=== PATIENT | male | born 1990 | race Caucasian/White ===

== ENCOUNTER 2017-05-05 21:30 | Inpatient (IN) | payer BC, OTHER ==
[~2017-05-05] VITALS: Ht 175.3 cm; Wt 81.6 kg
[2017-05-05] MEDS ORDERED: MAG HYDROX/AL HYDROX/SIMETH 30 ML LIQUID UDC PO PRN (23:00)
[2017-05-05] MEDS ORDERED: LORAZEPAM 2 MG/1 ML VIAL IM PRN (23:00)
[2017-05-05] MEDS ORDERED: LOPERAMIDE HCL 2 MG CAPSULE PO PRN ×2 (23:00)
[2017-05-05] MEDS ORDERED: DICYCLOMINE HCL 20 MG TABLET PO PRN (23:00)
[2017-05-05] MEDS ORDERED: diphenhydrAMINE 50 MG CAPSULE PO PRN (23:00)
[2017-05-05] MEDS ORDERED: LORAZEPAM 1 MG TABLET PO PRN ×2 (23:00)
[2017-05-05] MEDS ORDERED: MIRALAX 17 GM POWD.PACK PO PRN (23:00)
[2017-05-05] MEDS ORDERED: ONDANSETRON ODT 4 MG TAB.RAPDIS SL PRN (23:00)
[2017-05-05] MEDS ORDERED: IBUPROFEN 400 MG TABLET PO PRN (23:00)
[2017-05-05] MEDS ORDERED: MAGNESIUM HYDROXIDE 30 ML LIQUID UDC PO PRN (23:00)
[2017-05-05] MEDS ORDERED: THIAMINE HCL 200 MG/2 ML VIAL IM ONE (23:00)
[2017-05-05] MEDS ORDERED: ONDANSETRON 4 MG/2 ML VIAL IM PRN (23:00)
[2017-05-05] MEDS ORDERED: ACETAMINOPHEN 325 MG TABLET PO PRN (23:00)
--- NOTE | 2017-05-05 23:20 | NUR ---
Pre- Admission Notes Px is a 27 y/o male, seen at intake, A&Ox4, no SOB with moderate anxiety noted at this time. Discussed with patient the admission policies of the unit. Patient is coherent and able to respond to questions appropriately. Px is ambulatory with steady gait. Vital signs taken and as follows: BP: 149/89, P: 121, R: 18, O2: 97%, T: 97.8, PA: 0. Px verbalized understanding of instructions and teachings regarding disposal of narcotic and other controlled home medications, unit protocols such as taking of vital signs Q4H and handling and disposal of contraband. We'll continue with admission upon px's arrival on the unit.
[2017-05-05 23:41] LABS: BASOPHILS # (AUTO) 0.1 K/uL (0.0-8.0); BASOPHILS % (AUTO) 0.6 % (0.0-2.0); EOSINOPHILS # (AUTO) 0.1 K/uL (0.0-0.7); EOSINOPHILS % (AUTO) 0.7 % (0.0-7.0); HEMATOCRIT 48.2 % (36.7-47.1); HEMOGLOBIN 17.1 g/dL (12.5-16.3); LYMPHOCYTES # (AUTO) 2.5 K/uL (20.0-40.0); LYMPHOCYTES % (AUTO) 25.2 % (20.5-51.5); MEAN CORPUSCULAR HEMOGLOBIN 30.9 uug (23.8-33.4); MEAN CORPUSCULAR HGB CONC 36 g/dL (32.5-36.3); MEAN CORPUSCULAR VOLUME 87.1 fL (73.0-96.2); MONOCYTES # (AUTO) 0.8 K/uL (2.0-10.0); MONOCYTES % (AUTO) 7.8 % (0.0-11.0); NEUTROPHILS # (AUTO) 6.4 K/uL (1.8-8.9); NEUTROPHILS % (AUTO) 65.7 % (38.5-71.5); PLATELET COUNT (AUTO) 393 K/uL (152-348); RED BLOOD CELL COUNT(AUTO) 5.53 MIL/uL (4.06-5.63); WHITE BLOOD COUNT (AUTO) 9.8 K/uL (3.6-10.2)
[2017-05-05] MEDS ORDERED: LORAZEPAM 1 MG TABLET PO SCH (23:50)
[2017-05-06] VITALS (7 sets, daily range): BP systolic 124–145; BP diastolic 70–105
--- NOTE | 2017-05-06 | NUR ---
Admission Notes Augustina is a 27 y/o male admitted on 05/05/17 for ETOH, cannabis and cocaine dependence, arrived on the unit at 2342. Px able to provide UDS during intake. Skin and body check completed. Augustina is full code, NKA, regular diet and on fall/seizure precautions. No reported seizure history. Reports PMHx of anxiety, depression, and tinnitus. Augustina refuses flu/pneumonia vaccine. Vitals upon assessment are BP: 142/85, P: 102, R: 18, O2: 97%, T: 98.1, PA: 0/10. Weight 180 lbs, height 5'9". Augustina is currently intoxicated. Px reports he quit smoking recently. Augustina is able to understand and respond to all questions pertaining to his hospitalization. Substance Abuse History is as follows: 1. Vodka/Whiskey- 750 ml daily for 3 weeks, last intake 05/05/2017 700 ml 2. Cocaine 0.5 -1 G snorted per month intermittently, last intake 4 days ago 0.5 G 3. Cannabis- 0.5 G smoked daily for 8 years, last intake 05/05/2017, 0.5 G Pxs longest sober period was 1.5 weeks, few weeks ago. Augustina reports this is his first time in treatment/detox. Reports substance use history and seizures with his father. Upon assessment, augustina is A&Ox4 and presents with anxiety, and flushed skin. Respirations even and unlabored. Denies SOB or chest pain. Bowel sounds active x 4, abdomen soft. PERRLA. Skin intact, no open wounds noted. Augustina denies SI/HI at this time. Educational information provided and left at bedside. Px oriented to room and encouraged to notify staff with any concerns. Safety measures in place. Call light within reach, side rails up x 2, bed locked and in low position. We'll continue to monitor.
[2017-05-06 00:16] LABS: *AMPHETAMINE, URINE NEGATIVE (NEGATIVE); *BARBITURATE, URINE NEGATIVE (NEGATIVE); *CANNABINOID, URINE POSITIVE (NEGATIVE); *COCCAINE, URINE NEGATIVE (NEGATIVE); *OPIATE, URINE NEGATIVE (NEGATIVE); *PHENCYCLIDINE SCREEN,URINE NEGATIVE (NEGATIVE)
--- NOTE | 2017-05-06 00:18 | NUR ---
1x dose meds Ativan 1 mg/tab, 2 tabs given PO and Thiamine 100 mg given IM as 1x dose medications. We'll continue to monitor.
[2017-05-06 00:24] LABS: BILIRUBIN,TOTAL 0.5 mg/dL (0.2-1.0); MAGNESIUM 2.2 mg/dL (1.8-2.4); POTASSIUM 3.8 mmol/L (3.5-5.1); TOTAL PROTEIN, SERUM 8.8 g/dL (6.4-8.2)
--- NOTE | 2017-05-06 07:29 | NUR ---
End of Shift Notes 27 y/o male admitted on 05/05/17 for ETOH, cannabis and cocaine dependence. Px is full code, NKA, regular diet and on fall/seizure precautions. No reported seizure history. At 0018, CIWA 10, Ativan 1 mg/tab, 2 tabs given PO and Thiamine 100 mg given IM as 1x dose medications. After giveng the ordered medications, px went to sleep. Oral intake of 1 L, voided 2 x, No BM. Slept for 5 hours. Respirations are even and unlabored. Safety measures in place. Call light within reach, side rails up x 2, bed locked and in low position. We'll continue to monitor.
--- NOTE | 2017-05-06 07:30 | NUR ---
START OF SHIFT Pt 27 y/o male admitted for etoh, cocaine, and cannibus dependence. Pt received in room on bed with eyes closed resting, but easily arousable to name. Pt alert and oriented to name, place, and time. Perrla. Skin warm and moist to touch. Respirations even and unlabored. Bilateral hand tremors noted. It was reported that pt slept for 6 hours last night. Bed on lowest position with side rails x2 up for safety. Call light within reach. No distress noted at this time.
[2017-05-06] MEDS: FOLIC ACID 1 MG TABLET PO SCH (08:33)
[2017-05-06] MEDS: THIAMINE HCL 100 MG TABLET PO SCH (08:33)
[2017-05-06] MEDS: LORAZEPAM 1 MG TABLET PO SCH ×4 (08:33→21:37)
[2017-05-06] MEDS: MULTIVITAMINS,THERAPEUTIC TABLET PO SCH (08:33)
[2017-05-06] MEDS ORDERED: TUBERCULIN,PURIF.PROT.DERIV. 5 TU/0.1 ML TEST ID ONE (09:00)
[2017-05-06] MEDS: CLONIDINE HCL 0.1 MG TABLET PO PRN ×2 (12:18→21:37)
--- NOTE | 2017-05-06 12:38 | NUR ---
PRN Pt with xj=584/92. Catapres po prn per MD order given and tolerated well.
--- NOTE | 2017-05-06 13:38 | NUR ---
PRN EVAL Pt with qo=508/68.
--- NOTE | 2017-05-06 18:31 | NUR ---
END OF SHIFT Pt 27 y/o male admitted for etoh, cocaine, and cannibus dependence. Pt alert and oriented to name, place, and time. Perrla. Respirations even and unlabored. Skin warm and moist to touch. Bilateral hand tremors noted. Pt observed mostly isolative to room , but did attned group activity. Pt was seen by MD today. Pt medication compliant and tolerated well. No ASE noted. Bed on lowest position with side rails x2 up for safety. Call light within reach. No distress noted at this time.
--- NOTE | 2017-05-06 19:15 | NUR ---
START OF SHIFT NOTE : Pt. is 27 year old male admitted for ETOH, Cocaine, and MJ dependence on 05/05/2017. Pt. is Full Code, NKA, on Regular Diet. Pt. placed on 5 day Ativan taper on 05/06/2017 , tolerating well. Pt. is on fall/seizure precautions. Pt received in room watching TV, resting . Pt alert and oriented to name, place, and time. Pt. complains of increased level of anxiety. Bed on lowest position with side rails x2 up for safety. Call light within reach. No distress noted at this time.
--- NOTE | 2017-05-06 21:00 | NUR ---
PRN CATAPRES Pt. complains of increased level of anxiety. PRN CLONIDINE given as ordered. Safety measures in place : bed on lowest position with side rails x2 up for safety, call light within reach. Will continue to monitor closely and offer help.
--- NOTE | 2017-05-06 22:00 | NUR ---
RE-ASSESSMENT CATAPRES Pt. is sleeping, RR=16 unlabored and even. Safety measures in place : bed on lowest position with side rails x2 up for safety, call light within reach. Will continue to monitor closely and offer help.
--- NOTE | 2017-05-07 06:33 | NUR ---
END OF SHIFT NOTE : Pt. is 27 year old male admitted for ETOH, Cocaine, and MJ dependence on 05/05/2017. Pt. is Full Code, NKA, on Regular Diet. Pt. placed on 5 day Ativan taper on 05/06/2017 , tolerating well. Pt. is on fall/seizure precautions. Pt remains compliant with the treatment plan. PRN Catapress given during my shift. V/S remain WNL. RR=16, even and unlabored, lungs clear upon auscultation, abdomen soft and non- distended. Pt denies nausea, vomiting and diarrhea. CIWA taken when pt. was alert during the night, LAST CIWA= 3 at 0400 , [id number]=981 ml, voided x1 , slept 9 hours. Safety measures in place : bed on lowest position with side rails x2 up for safety, call light within reach. Will continue to monitor closely and offer help.
--- NOTE | 2017-05-07 07:30 | NUR ---
START OF SHIFT Pt 27 y/o male admitted for etoh, cocaine, and cannibus dependence. Pt received in room on bed with eyes closed resting, but easily arousable to name. Pt alert and oriented to name, place, and time. Perrla. Skin warm and slightly moist to touch. Respirations even and unlabored. Bilateral hand tremors noted slighlty. It was reported that pt slept for 9 hours last night. Bed on lowest position with side rails x2 up for safety. Call light within reach. No distress noted at this time.
[2017-05-07 08:00] VITALS: BP 138/85
[2017-05-07] MEDS: FOLIC ACID 1 MG TABLET PO SCH (08:11)
[2017-05-07] MEDS: THIAMINE HCL 100 MG TABLET PO SCH (08:11)
[2017-05-07] MEDS: LORAZEPAM 1 MG TABLET PO SCH ×3 (08:11→21:11)
[2017-05-07] MEDS: MULTIVITAMINS,THERAPEUTIC TABLET PO SCH (08:11)
[2017-05-07 12:03] VITALS: BP 141/98
[2017-05-07 12:09] LABS: HEPATITIS B SURFACE AG Negative (Negative)
[2017-05-07] MEDS: CLONIDINE HCL 0.1 MG TABLET PO PRN ×3 (12:09→21:11)
--- NOTE | 2017-05-07 12:11 | NUR ---
PRN Pt with dd=853/98. Catapres po prn per MD order given and tolerated well.
--- NOTE | 2017-05-07 13:11 | NUR ---
PRN EVAL pt with qd=603/88
[2017-05-07 16:00] VITALS: BP 140/93
--- NOTE | 2017-05-07 18:23 | NUR ---
PRN Pt with pw=227/93.Catapres po prn per MD order given and tolerated well.
--- NOTE | 2017-05-07 18:40 | NUR ---
END OF SHIFT Pt 27 y/o male admitted for etoh, cocaine, and cannibus dependence. Pt alert and oriented to name, place, and time. Perrla. Respirations even and unlabored. Skin warm and moist to touch. Bilateral hand tremors noted. Pt appears suspicious/ guarded on approach. Pt observed mostly isolative to room , but did attend group activity. Pt was seen by MD today. Pt medication compliant and tolerated well. No ASE noted. Bed on lowest position with side rails x2 up for safety. Call light within reach.
--- NOTE | 2017-05-07 19:15 | NUR ---
START OF SHIFT NOTE : Pt. is 27 year old male admitted for ETOH, Cocaine, and MJ dependence on 05/05/2017. Pt. is Full Code, NKA, on Regular Diet. Pt. placed on 5 day Ativan taper on 05/06/2017 , tolerating well. Pt. is on fall/seizure precautions. Pt. is walking on the floor, communicating with other clients, he complains of increased level of anxiety , want to smoke. Safety measures in place : bed on lowest position with side rails x2 up for safety, call light within reach. Will continue to monitor closely and offer help.
[2017-05-07 20:00] VITALS: BP 154/104
[2017-05-07] MEDS: GABAPENTIN 300 MG CAPSULE PO SCH (21:12)
--- NOTE | 2017-05-08 06:49 | NUR ---
END OF SHIFT NOTE : Pt. is 27 year old male admitted for ETOH, Cocaine, and MJ dependence on 05/05/2017. Pt. is Full Code, NKA, on Regular Diet. Pt. placed on 5 day Ativan taper on 05/06/2017 , tolerating well. Pt. is on fall/seizure precautions. Pt remains compliant with the treatment plan. PRN Catapress given during my shift. V/S remain WNL. RR=16, even and unlabored, lungs clear upon auscultation, abdomen soft and non- distended. Pt denies nausea, vomiting and diarrhea. CIWA taken when pt. was alert during the night, LAST CIWA= 3 at 0400 , [id number] ml, voided x1 , slept 8 hours. Safety measures in place : bed on lowest position with side rails x2 up for safety, call light within reach. Will continue to monitor closely and offer help.
--- NOTE | 2017-05-08 07:32 | NUR ---
Start of shift- Rcvd endorsement from ongoing nurse. Pt. is 27 y/o male admitted for ETOH, Cocaine, and MJ dependence. Pt. is Full Code, NKA, on Regular Diet. Pt. placed on 5 day Ativan taper on 05/06/2017, tolerating well. Pt. is on fall/seizure precautions. Pt in bed appears to be sleeping. Respirations even and unlabored. At 0300 last CIWA 3. Pt denies c/o N/V/D. Pt had uneventful night. Safety measures in place. Bed lowest/locked position, side rails up X2/padded, call light within reach. Will continue to monitor signs and symptoms of withdrawal.
[2017-05-08 08:00] VITALS: BP 121/76
[2017-05-08] MEDS: THIAMINE HCL 100 MG TABLET PO SCH (08:55)
[2017-05-08] MEDS: MULTIVITAMINS,THERAPEUTIC TABLET PO SCH (08:55)
[2017-05-08] MEDS: FOLIC ACID 1 MG TABLET PO SCH (08:55)
[2017-05-08] MEDS: LORAZEPAM 1 MG TABLET PO SCH ×3 (08:55→16:56)
[2017-05-08] MEDS: GABAPENTIN 300 MG CAPSULE PO SCH ×2 (08:55→14:27)
--- NOTE | 2017-05-08 08:55 | NUR ---
PRN Motrin PO per MD order for headache #4/10.
[2017-05-08] MEDS ORDERED: LORAZEPAM 1 MG TABLET PO SCH ×2 (09:00→21:00)
--- NOTE | 2017-05-08 09:55 | NUR ---
Reasses ROXY Cooper, Pt states headache #04/14. Rx effective.
[2017-05-08 12:00] VITALS: BP 140/108
[2017-05-08] MEDS: CLONIDINE HCL 0.1 MG TABLET PO PRN ×2 (12:16→18:29)
--- NOTE | 2017-05-08 12:16 | NUR ---
PRN Catapress 0.1mg PO for elevated BP 140/108.
[2017-05-08 13:15] VITALS: BP 141/88
--- NOTE | 2017-05-08 13:15 | NUR ---
Reassess PRN Catapress, BP slightly improved. 141/88, HR 85. Pt states he feels well. Denies c/o headache or anxiety at this time.
[2017-05-08 16:00] VITALS: BP 145/93
--- NOTE | 2017-05-08 17:05 | NUR ---
CATAPRES Pt with dn=947/93. Last catapres 0.1mg po prn q6h bp>140/90 was given at 1216. made aware, and stated okay to hold off on catapres.
--- NOTE | 2017-05-08 18:30 | NUR ---
PRN Pt with nn=054/97. Catapres po prn per MD order given and tolerated well.
--- NOTE | 2017-05-08 18:35 | NUR ---
End of shift- Pt. is 27 y/o male admitted for ETOH, Cocaine, and MJ dependence. Pt. is Full Code, NKA, on Regular Diet. Pt presents with flat affect and depressed mood. Pt. on 5 day Ativan taper on 05/06/2017. PRN Catapres 0.1 mg PO administered for elevate BP at 1200. BP remains elevated at 1600, Dr. Owens notified, no new orders. BP recheck at 1830 was 148/97. Administered PRN Catapres 0.1mg po. Pt participated in group therapy and was visible on the unit. Pt is on fall/seizure precautions. At 1600 CIWA 10. Adequate PO fluid intake of 1322 ml, voids X 4, no BM. Safety measures in place. Safety measures in place. Bed lowest/locked position, side rails up X2/padded, call light within reach. Will endorse to oncoming nurse.
--- NOTE | 2017-05-08 19:15 | NUR ---
START OF SHIFT NOTE : Pt. is 27 year old male admitted for ETOH, Cocaine, and MJ dependence on 05/05/2017. Pt. is Full Code, NKA, on Regular Diet. Pt. placed on 5 day Ativan taper on 05/06/2017 , tolerating well. Pt. is on fall/seizure precautions. Pt. is in the activity room, communicating with other clients, watching TV, he complains of increased level of anxiety. Safety measures in place : bed on lowest position with side rails x2 up for safety, call light within reach. Will continue to monitor closely and offer help.
[2017-05-08 20:00] VITALS: BP 140/99
[2017-05-08] MEDS ORDERED: GABAPENTIN 300 MG CAPSULE PO SCH (21:00)
[2017-05-09] VITALS (7 sets, daily range): BP systolic 138–148; BP diastolic 84–100
--- NOTE | 2017-05-09 06:42 | NUR ---
END OF SHIFT NOTE : Pt. is 27 year old male admitted for ETOH, Cocaine, and MJ dependence on 05/05/2017. Pt. is Full Code, NKA, on Regular Diet. Pt. placed on 5 day Ativan taper on 05/06/2017 , tolerating well. Pt. is on fall/seizure precautions. Pt remains compliant with the treatment plan. No PRN were given during my shift. V/S remain WNL. RR=16, even and unlabored, lungs clear upon auscultation, abdomen soft and non- distended. Pt denies nausea, vomiting and diarrhea. CIWA taken when pt. was alert during the night, LAST CIWA= 2 at 0400 , [id number]=5040 ml, voided x3 , slept 6 hours. Safety measures in place : bed on lowest position with side rails x2 up for safety, call light within reach. Will continue to monitor closely and offer help.
[2017-05-09] MEDS: THIAMINE HCL 100 MG TABLET PO SCH (08:30)
[2017-05-09] MEDS: LORAZEPAM 1 MG TABLET PO SCH ×3 (08:31→20:31)
[2017-05-09] MEDS: MULTIVITAMINS,THERAPEUTIC TABLET PO SCH (08:31)
[2017-05-09] MEDS: GABAPENTIN 300 MG CAPSULE PO SCH ×3 (08:31→20:31)
[2017-05-09] MEDS: FOLIC ACID 1 MG TABLET PO SCH (08:31)
--- NOTE | 2017-05-09 09:57 | NUR ---
Therapist prompted client about group times. Client stated he would attend all groups today.
[2017-05-09] MEDS: CLONIDINE HCL 0.1 MG TABLET PO PRN ×2 (12:52→20:32)
--- NOTE | 2017-05-09 12:53 | NUR ---
PRN Catapres 0.1 mp PO for BP 146/98
--- NOTE | 2017-05-09 13:53 | NUR ---
Reassess BP slightly improved after Catapres, now 141/92. Will continue to monitor.
--- NOTE | 2017-05-09 18:40 | NUR ---
End of shift- Pt. is 27 y/o male admitted for ETOH, Cocaine, and MJ dependence. Pt. is Full Code, NKA, on Regular Diet. Pt in better spirits today. Pt. on 5 day Ativan taper on 05/06/2017. PRN Catapres 0.1 mg PO administered for elevate BP at 1200 with slight improvement. Pt participated in group therapy and was visible on the unit. Pt is on fall/seizure precautions. At 1600 CIWA 3. Adequate PO fluid intake of 2488 ml, voids X 3, no BM. Safety measures in place. Bed lowest/locked position, side rails up X2/padded, call light within reach. Will endorse to oncoming nurse.
--- NOTE | 2017-05-09 20:00 | NUR ---
Start of Shift Report: Alert/O x4 gait is stable CIWA 3 c/o anxiety and B/p 148/100 HR 112 given prn catapres 0.1 mg po. On Ativan tamper day 4-5. Denies of any other distress. Continue monitor for falls,sz and safety. Siderails up Call light within reach.
--- NOTE | 2017-05-09 21:45 | NUR ---
follow up Catapres 0.1mg po. B/p 138/98 Hr 104. effective
--- NOTE | 2017-05-09 22:49 | NUR ---
In room denies of any distress. Endorsed care to [facility].
--- NOTE | 2017-05-09 23:00 | NUR ---
RECEIVED REPORT FROM NURSE MONTELONGO.PT RECEIVED IN STABLE CONDITION AND IS RESTING IN BED WITH EYES CLOSED,APPEARS TO BE ASLEEP.PRN CLONIDINE WAS GIVEN FOR ELEVATED B/P AND WAS EFFECTIVE.BREATHING IS EVEN AND NON LABORED.WILL CONTINUE TO MONITOR.
[2017-05-10] VITALS (7 sets, daily range): BP systolic 125–144; BP diastolic 76–100
--- NOTE | 2017-05-10 06:37 | NUR ---
END OF SHIFT Pt. is 27 year old male admitted for ETOH, Cocaine, and MJ dependency. Pt. is Full Code, NKA, on Regular Diet. Pt continues on Ativan taper as ordered and is tolerating well. Pt. is on fall/seizure precautions. PRN Clonidine was given for elevated BP and was effective.Pt slept 8 hrs,fluid intake was 1500 mls,voided x 3, b/m x 1 . Last CIWA=2. Safety measures in place : bed on lowest position with side rails x2 up for safety, call light within reach. Will continue to monitor.
--- NOTE | 2017-05-10 07:34 | NUR ---
Start of shift note; Received report from night nurse. Patient is a 27 year old admitted on 05/05/17 to detoxify from ETOH/ Cocaine. Patient reported history of anxiety, depression and tinnitus. NKA, on a regular diet on full code status.Patient was placed on 5 day Ativan taper, no adverse reaction noted. Patient had an uneventful night. All safety measures secured. Met all needs.
[2017-05-10] MEDS: LORAZEPAM 1 MG TABLET PO SCH ×2 (08:23→21:34)
[2017-05-10] MEDS: MULTIVITAMINS,THERAPEUTIC TABLET PO SCH (08:23)
[2017-05-10] MEDS: THIAMINE HCL 100 MG TABLET PO SCH (08:23)
[2017-05-10] MEDS: GABAPENTIN 300 MG CAPSULE PO SCH ×3 (08:23→21:34)
[2017-05-10] MEDS: FOLIC ACID 1 MG TABLET PO SCH (08:24)
--- NOTE | 2017-05-10 18:46 | NUR ---
End of shift note; Patient is AOX4. Patient remained compliant with treatment plan and medication regime. medications noted to be effective in reducing withdrawal symptoms. Patient participated in group activities and therapies. All safety measures secured. Patient's last CIWA score is 3. Met all needs.
--- NOTE | 2017-05-10 19:30 | NUR ---
START OF SHIFT Pt. is 27 year old male admitted for ETOH, Cocaine, and MJ dependency. Pt. is Full Code, NKA, on Regular Diet. Pt continues on Ativan taper as ordered and is tolerating well. Pt. is on fall/seizure precautions. No PRN meds were given during the day. Last CIWA=3. Safety measures in place; bed is locked in lowest position with side rails x2 up for safety, call light within reach. Will continue to monitor.
--- NOTE | 2017-05-11 | NUR ---
V/S REFUSED; CIWA DEFERRED D/T SLEEP Pt is deep sleep,refused v/s,CIWA deferred D/T being asleep; breathing is even and non labored; no s/s of distress noted.
[2017-05-11 04:00] VITALS: BP 125/76
--- NOTE | 2017-05-11 06:52 | NUR ---
END OF SHIFT Pt. is 27 year old male admitted for ETOH, Cocaine, and MJ dependency. Pt. is Full Code, NKA, on Regular Diet. Pt continues on Ativan taper as ordered and is tolerating well. Pt. is on fall/seizure precautions. No PRN meds were given during the night. Last CIWA=3.Pt slept 6 hrs,fluid intake was 2500 mls,voided x 4, B/M X 1 . [address]; bed is locked in lowest position with side rails x2 up for safety, call light within reach. Will continue to monitor.
--- NOTE | 2017-05-11 07:09 | NUR ---
Start of shift note; Received report from night nurse. Patient is a 27 year old admitted on 05/05/17 to detoxify from ETOH/ Cocaine. Patient reported history of anxiety, depression and tinnitus. NKA, on a regular diet on full code status.Patient was placed on 5 day Ativan taper, no adverse reaction noted. Patient received PRN Robaxin, trazodone and motrin all noted to be effective. All safety measures secured. Will continue to monitor patient.
[2017-05-11 08:00] VITALS: BP 130/79
[2017-05-11] MEDS: GABAPENTIN 300 MG CAPSULE PO SCH ×3 (08:22→21:18)
[2017-05-11] MEDS: THIAMINE HCL 100 MG TABLET PO SCH (08:22)
[2017-05-11] MEDS: FOLIC ACID 1 MG TABLET PO SCH (08:22)
[2017-05-11] MEDS: MULTIVITAMINS,THERAPEUTIC TABLET PO SCH (08:22)
[2017-05-11] MEDS ORDERED: LORAZEPAM 1 MG TABLET PO SCH (09:00)
[2017-05-11 12:00] VITALS: BP 132/89
[2017-05-11] MEDS ORDERED: DIPH50CA37 PO (15:53)
[2017-05-11] MEDS ORDERED: GABA-534 PO ×2 (15:53)
[2017-05-11] MEDS ORDERED: CLON0.1T14 PO (15:53)
[2017-05-11 16:00] VITALS: BP 137/80
--- NOTE | 2017-05-11 18:28 | NUR ---
End of shift note; Patient is AOX4. Patient remained compliant with treatment plan and medication regime. medications noted to be effective in reducing withdrawal symptoms. Patient participated in group activities and therapies. All safety measures secured. Patient's last CIWA score is 2. Met all needs.
--- NOTE | 2017-05-11 19:15 | NUR ---
START OF SHIFT Received 27 year old male patient admitted on 05/05/17 for ETOH, Cocaine and Marijuana dependency. Pt is full code with NKA. He reports a PMHx of anxiety, depression and tinnitus. He reports using ETOH (vodka/whiskey) 750mL daily for 3 weeks. Last dose was 700mL on 05/05/17. Cocaine 0.5-1 gram (smoke) intermittently. And Marijuana 0.5 gram daily. Pt was receiving a 5 day Ativan taper and tolerated well. He is scheduled to be DC tomorrow to [facility]. Per endorsement, pt did not receive or request PRN medications. Pt is alert and oriented x4, breathing even and unlabored. Safety measures in place. Will continue to monitor.
[2017-05-11 20:00] VITALS: BP 154/94
--- NOTE | 2017-05-12 | NUR ---
VITALS REFUSED 0000 vitals refused. CIWA deferred d/t pt lying in bed with eyes closed noted to be asleep. Safety measures in place. Will continue to monitor.
--- NOTE | 2017-05-12 04:00 | NUR ---
VITALS REFUSED 0400 vitals refused. CIWA deferred d/t pt lying in bed with eyes closed noted to be asleep. Safety measures in place. Will continue to monitor.
--- NOTE | 2017-05-12 07:07 | NUR ---
END OF SHIFT Pt is lying in bed with eyes closed and is asleep. He is scheduled to be DC today to [facility]. Pt noted with flat affect and anxiety. He did not receive or request PRN medications. Pt remains alert and oriented x4, breathing even and unlabored. Safety measures in place. Will endorse.
--- NOTE | 2017-05-12 07:24 | NUR ---
Start of shift note; Received report from night nurse. Patient is currently asleep, respirations even and unlabored. Patient was admitted on 05/05/17 for ETOH withdrawals. Patient was placed on a 5 day Ativan taper to prevent withdrawal induced seizures. Medications were effective in reducing withdrawal symptoms. Patient completed treatment without any adverse reactions. Patient is medically cleared for discharge today to be transferred to [facility]. All safety measures secured. Will continue to monitor patient.
[2017-05-12 08:00] VITALS: BP 118/76
[2017-05-12] MEDS: MULTIVITAMINS,THERAPEUTIC TABLET PO SCH (08:19)
[2017-05-12] MEDS: THIAMINE HCL 100 MG TABLET PO SCH (08:19)
[2017-05-12] MEDS: FOLIC ACID 1 MG TABLET PO SCH (08:19)
[2017-05-12] MEDS: GABAPENTIN 300 MG CAPSULE PO SCH (08:19)
--- NOTE | 2017-05-12 09:33 | NUR ---
Discharge note; Patient is AOX4. All valuables and belongings given to patient. Patient completed treatment without any adverse reactions. Patient is medically cleared for discharge per MD. Patient to be transferred to [facility] to help maintain sobriety. Patient denies S/I and H/I. Patient left the hospital at exactly 0933 on 05/12/17. Patient left in a stable condition. Met all needs.
== END 2017-05-12 09:33 | disposition other institution (70) | DRG 895 ==
LOC: SRC 22:27
PROVIDERS: ADMIT Internal Medicine; ATTEND Internal Medicine
PROC: HZ2ZZZZ Detoxification Services for Substance Abuse Treatment (ICD-10-PCS; principal; 2017-05-05)
PROC: HZ41ZZZ Group Counseling for Substance Abuse Treatment, Behavioral (ICD-10-PCS; 2017-05-06)
PROC: HZ31ZZZ Individual Counseling for Substance Abuse Treatment, Behavioral (ICD-10-PCS; 2017-05-08)
DX: F10.232 Alcohol dependence with withdrawal with perceptual disturbance (principal); K70.10 Alcoholic hepatitis without ascites; I15.9 Secondary hypertension, unspecified; F12.10 Cannabis abuse, uncomplicated; F14.10 Cocaine abuse, uncomplicated; F41.9 Anxiety disorder, unspecified; F17.290 Nicotine dependence, other tobacco product, uncomplicated; Y90.7 Blood alcohol level of 200-239 mg/100 ml; Z82.0 Family history of epilepsy and other diseases of the nervous system; Z83.3 Family history of diabetes mellitus; Z81.1 Family history of alcohol abuse and dependence; Z91.89 Other specified personal risk factors, not elsewhere classified
CPT/HCPCS: 36415; 70030-TC; 80307; 80349; 83735; 85025; 86592; 86705; 86803; 87340; 87806; A4663; G0480; J3411